=== PATIENT | male | born 1975 | race African-American/Black ===

== ENCOUNTER 2018-01-25 06:00 | Day surgery (SDC) | payer OTHER ==
[~2018-01-25] VITALS: Ht 185.4 cm; Wt 73.0 kg
[~2018-01-25 06:00] MED LIST: DIBU28OI RC; DOCU-109 PO; HYDR30CR70 TP; IBUP200T44 PO
[2018-01-25] MEDS ORDERED: BUPIVAC MPF-EPI 0.5%-1:200000 30 ML VIAL. ONE (06:53)
[2018-01-25] MEDS ORDERED: PROPOFOL 20 ML IV ONE (06:57)
[2018-01-25] MEDS ORDERED: fentaNYL PF VIAL 100 MCG/2 ML VIAL ONE (06:57)
[2018-01-25] MEDS ORDERED: DEXAMETHASONE SOD PHOS 20 MG/5 ML VIAL. ONE (06:57)
[2018-01-25] MEDS ORDERED: SUCCINYLCHOLINE 200 MG/10 ML VIAL. ONE (06:57)
[2018-01-25] MEDS ORDERED: ONDANSETRON PF 4 MG/2 ML VIAL. ONE (06:57)
[2018-01-25] MEDS ORDERED: MIDAZOLAM HCL/PF 2 MG/2 ML VIAL. ONE (06:58)
[2018-01-25] MEDS ORDERED: IV RINGERS,LACTATED 1000ML 1,000 ML IV SCH (07:00)
[2018-01-25] MEDS ORDERED: LIDOCAINE 1% PF 2 ML VIAL. ID PRN (07:00)
[2018-01-25] MEDS ORDERED: HYDROmorphone 2 MG/ML VIAL IV PRN (07:00)
[2018-01-25] MEDS ORDERED: ONDANSETRON PF 4 MG/2 ML VIAL. IV PRN (07:00)
[2018-01-25] MEDS ORDERED: MORPHINE SULFATE 2 MG/ML VIAL. IV PRN (07:00)
[2018-01-25] MEDS ORDERED: fentaNYL PF VIAL 100 MCG/2 ML VIAL IV PRN ×2 (07:00)
[2018-01-25] MEDS ORDERED: PROCHLORPERAZINE 10 MG/2 ML VIAL. IV PRN (07:00)
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
--- NOTE | 2018-01-25 08:58 | PDOC ---
BRIEF OPERATIVE NOTE Date: Jan 25, 2018 Pre-Op Diagnosis right axillary cyst Post-Op Diagnosis same Procedure Performed excision Surgeon Delvis Anesthesia Type: General Blood Loss 5cc IV Fluid 600cc Specimens Obtained skin and subcutaneous tissue, right axilla 4x2.5x2 cm Findings cystic mass Complications none Operative Note # [id number] VERN KANG MD Jan 25, 2018 08:58
--- NOTE | 2018-01-25 09:00 | DISCH ---
DISCHARGE INSTRUCTIONS Condition on Discharge Condition on Discharge: Stable Activity After Discharge Activity Instructions for Disc: Activity as tolerated, Avoid exertion Lifting Instructions after Dis: No heavy lifting Diet after Discharge Diet after Discharge: Regular Wound Incision Care Wound/Incision Care: Ice to area for comfort Other wound/incision instructi: sandrita shower Thursday Follow-Up Follow Up With: Delvis 02/04 VERN KANG MD Jan 25, 2018 09:00
[2018-01-25] MEDS ORDERED: IBUPROFEN 200 MG TABLET. PO ONE ×2 (09:15→09:16)
[2018-01-25 09:19] VITALS: BP 117/76
--- NOTE | 2018-01-25 09:29 | OP ---
DATE OF SURGERY: 01/25/2018 PREOPERATIVE DIAGNOSIS: Right axillary cyst. POSTOPERATIVE DIAGNOSIS: Right axillary cyst. PROCEDURE: Excision of the right axillary cyst. SURGEON: Vern Kang M.D. ANESTHESIA: General LMA. ESTIMATED BLOOD LOSS: 5 mL. INTRAVENOUS FLUIDS: 600 mL. SPECIMEN: Skin and subcutaneous mass, right axilla, 4 x 2.5 x 2 cm. DESCRIPTION OF PROCEDURE: The patient was brought to the operating suite, given a general LMA and the right axilla prepped and draped in the usual sterile fashion. An elliptical incision to include the puncta of the cyst was outlined with a marking pen. The area was then infiltrated with 0.5% Marcaine with epinephrine. Skin incised and the skin and underlying process removed intact. Hemostasis was with cautery. When a correct sponge count was obtained, the wound was closed with interrupted 3-0 Vicryl in the subcutaneous tissue, a subcuticular 4-0 Monocryl with Steri-Strips in the skin. Sterile dressing applied. The patient was awakened from his anesthetic and taken to the recovery room in satisfactory condition. VERN KANG MD DR: [facility]/blake JOB#: [id number] / [id number]
--- NOTE | 2018-01-27 10:14 | PATHOLOGY ---
[facility] Accession Number: [id number] . 01 Material submitted: . SKIN AND SUBCUTANEOUS TISSUE RIGHT AXILLA . 01 Clinical history: . Mass . 02 Diagnosis: Skin and subcutaneous tissue, right axilla: - Epidermal inclusion cyst. (JPM:yohana; 01/26/2018) QMS/01/26/2018 . 02 Comment: There is no evidence of malignancy. . 02 Electronically signed: . Kristopher Leal MD, Pathologist NPI- [id number] . 01 Gross description: . The specimen is received in formalin, labeled "Aurelia SR, Kekaylene, skin and subcutaneous tissue right axilla", is an unoriented ellipse of power-brown skin, 3.5 x 0.7 cm with underlying attached intact, costa-white cyst measuring 3.5 x 2.7 x 1.5 cm. The specimen is inked black, serially sectioned to show the cyst cavity filled with brown-costa, friable material and a smooth cyst lining. Entry Level Lab Technician tissue is submitted in A1-A2. ([facility]; 01/25/2018) SHS/SHS . 02 Pathologist provided ICD-10: L72.0 . 02 CPT . 049263 Specimen Comment: A courtesy copy of this report has been sent to Specimen Comment: [phone], . Specimen Comment: Report sent to / DR MCKINNEY Specimen Comment: A duplicate report has been generated due to demographic updates. Performed at: 01 [facility] [address], [place], [place] [id number] MD Camron Ibarra MD Phone: [phone] Performed at: [facility] [address], [place] [id number] MD Kristopher Leal MD Phone: [phone]
== END 2018-01-25 09:45 | disposition home or self-care (01) ==
LOC: SURG 06:00
PROVIDERS: ATTEND Surgery
DX: L72.0 Epidermal cyst (principal); Z79.899 Other long term (current) drug therapy
CPT/HCPCS: 11404; 88304; A7015; J0690; J1100; J2250; J2405; J2704; J3010; J3490; J0330